=== PATIENT | female | born 1995 | race Caucasian/White ===

== ENCOUNTER 2018-06-27 17:55 | Emergency (ER) | payer MEDICAID ==
[~2018-06-27] VITALS: Ht 162.6 cm; Wt 61.7 kg
[2018-06-27 18:14] VITALS: Ht 162.6 cm; Wt 61.7 kg
[2018-06-27 19:06] LABS: BASOPHIL % 0.4 % (0-2); PLATELET COUNT 193 x10^3mcL (130-400); RED CELL DISTRIBUTION WIDTH 12.9 % (11.5-14.5)
[2018-06-27 19:19] LABS: microscopic required? NO
[2018-06-27 19:26] LABS: UA SPECIFIC GRAVITY >=1.030 (1.005-1.035); urine erythrocyte NEGATIVE (NEGATIVE)
[2018-06-27 19:26] LABS: CALCIUM 8.6 mg/dL (8.5-10.1); CARBON DIOXIDE 26.8 mmol/L (21-32); CHLORIDE SERUM 100 mmol/L (98-107); CREATININE SERUM 0.5 mg/dL (0.6-1.0); GFR1 > 60 mL/min; GLUCOSE SERUM 203 mg/dL (74-106); POTASSIUM SERUM 4.1 mmol/L (3.5-5.1); SODIUM SERUM 135 mmol/L (136-145)
[2018-06-27 19:29] LABS: ALBUMIN 3.8 g/dL (3.4-5.0); ALKALINE PHOSPHATASE 85 U/L (46-116); ALT/SGPT 23 U/L (14-59); AMYLASE 32 U/L (25-115); AST/SGOT 18 U/L (15-37); LIPASE 54 IU/L (73-393); TOTAL PROTEIN, SERUM 7.1 g/dL (6.4-8.2)
[2018-06-27 20:44] VITALS: BP 95/55
== END 2018-06-27 20:44 | disposition home or self-care (01) ==
LOC: ED 17:55
PROVIDERS: Emergency Medicine
DX: R10.13 Epigastric pain (principal); R11.0 Nausea
CPT/HCPCS: J1885; Q0092; Q0162

== ENCOUNTER 2019-11-25 15:57 | Emergency (ER) | payer MEDICAID ==
[~2019-11-25] VITALS: Ht 162.6 cm; Wt 62.1 kg
[2019-11-25 16:22] VITALS: BP 116/74; Ht 162.6 cm; Wt 62.1 kg
== END 2019-11-25 18:16 | disposition home or self-care (01) ==
LOC: ED 15:57
DX: K12.1 Other forms of stomatitis (principal); E11.9 Type 2 diabetes mellitus without complications

== ENCOUNTER 2020-04-10 11:11 | Emergency (ER) | payer MEDICAID ==
[~2020-04-10] VITALS: Ht 162.6 cm; Wt 63.5 kg
[2020-04-10 11:20] VITALS: Ht 162.6 cm; Wt 63.5 kg
[2020-04-10 12:08] VITALS: BP 117/79
== END 2020-04-10 12:08 | disposition home or self-care (01) ==
LOC: ED 11:11
DX: K12.1 Other forms of stomatitis (principal); E10.9 Type 1 diabetes mellitus without complications